=== PATIENT | male | born 1955 | race Caucasian/White ===

== ENCOUNTER → 2023-11-28 10:00 | Outpatient (REF) | payer BC, MEDICARE, SELFPAY | LOC: HWRAD 10:00 | PROVIDERS: ATTENDING PHYSICIAN Family Medicine | DX: M54.59 Other low back pain (principal) | CPT/HCPCS: 72072; 72110 ==

== ENCOUNTER 2024-01-13 18:38 | Emergency (ER) | payer BC, MEDICARE, SELFPAY ==
[2024-01-13 18:50] VITALS: BP 138/82; BMI 35.6
[2024-01-13 19:10] LABS: % Basophils 0.5 % (0-2); % Eosinophils 1.3 % (0-6); % Immature Granulocytes 0.3 % (0-0.5); % Lymphocytes 17.7 % (20.5-51.1); % Monocytes 5.7 % (1.7-9.3); % Neutrophils 74.5 % (42.2-75.2); Absolute Basophils 0.1 10^3/uL (0-0.2); Absolute Eosinophils 0.1 10^3/uL (0-0.7); Absolute Lymphocytes 1.8 10^3/uL (1.2-3.4); Absolute Monocytes 0.6 10^3/uL (0.1-0.6); Absolute Neutrophils 7.8 10^3/uL (1.4-6.5); Hematocrit 43.5 % (39.0-52.0); Hemoglobin 14.4 g/dL (13.0-18.0); Mean Corp Hgb Conc. 33.1 g/dL (33.0-37.0); Mean Corpuscular Volume 84.6 fL (80.0-94.0); Mean Platelet Volume 9.7 fL (7.4-10.4); Nucleated Red Blood Cells % 0 % (-); Platelet Count 207 10^3/uL (130-400); Red Blood Cell Count 5.14 10^6/uL (4.70-6.10); Red Cell Dist. Width 13.3 % (11.5-14.5); White Blood Cell Count 10.4 10^3/uL (4.8-10.8)
[2024-01-13 19:27] LABS: ALT (SGPT) 37 U/L (0-50); AST (SGOT) 35 U/L (17-59); Albumin 4.4 g/dl (3.5-5.0); Alkaline Phosphatase 69 U/L (38-126); Blood Urea Nitrogen 23 mg/dl (9-20); Calcium 9.9 mg/dl (8.4-10.2); Carbon Dioxide 25 mmol/L (22-30); Chloride 105 mmol/L (98-107); Estimated Creatinine Clearance 56 ml/min; Glucose 152 mg/dl (70-99); Lipase 224 U/L (23-300); Potassium 4.3 mmol/L (3.5-5.1); Sodium 141 mmol/L (135-145); Total Bilirubin 0.5 mg/dl (0.2-1.3); Total Protein 7.9 g/dl (6.3-8.2); eGFR > 60.00
--- NOTE | 2024-01-13 19:57 | ED.GENMED ---
History of Present Illness
General
Chief Complaint: Abdominal Pain
Source: patient
Exam Limitations: none
Time Seen by Provider: 01/13/24 19:44
Nursing documentation reviewed up to this point in time: agreed with
Travel History
Have you had any contact with someone who has COVID-19?: No
Do you have any symptoms of coronavirus? Fever > 100 degrees, chills, cough, shortness of breath, sore throat, loss of taste or smell, muscle aches, or headache?: No
History of Present Illness
History of Present Illness:
69 yo male w h/o IDDM, kidney stones, HTN, presents stating 1 p.m. today started with non bloody liquid diarrhea, has had 3-4 times 2 hours after eating turkey TV dinner for lunch. Developed abdominal bloating and 'not really pain but discomfort.'
Also nausea, no vomiting but feels if he could vomit he would feel better.
No recent antibiotic use, no recent travel, no known sick contacts.
Past History
Past History
ED Past Medical History: HTN, Hypercholesterolemia, IDDM and Other (sciatica)
ED Past Surgical History: Orthopedic and Other (hernia repair)
Social History
Tobacco: Former smoker (quit 20 yrs ago)
Alcohol: None
Drug: None
Personal:
Living: with family
Employment: Retired
Review of Systems
Review of Systems
Allergies reviewed?: Yes
All Other Systems: ROS reviewed and negative except as documented in HPI and ROS
Constitutional: Denies fever
Respiratory: Denies trouble breathing
Cardiac: Denies chest pain
ABD/GI: Reports abdominal pain, nausea and diarrhea; Denies vomiting, bloody stools or black stools
: Reports no symptoms
Musculoskeletal: Reports no symptoms
Skin: Reports no symptoms
Neurological: Reports no symptoms
Phy Exam
Physical Exam
Physical Exam:
GENERAL: No acute distress. A&Ox3.
CONSTITUTIONAL: Afebrile.
EYES:clear, conjunctivae normal
ENMT: moist mucus membranes, Pharynx nl
RESPIRATORY: Regular respirations, nonlabored, lungs clear.
CARDIOVASCULAR: Regular rate and rhythm, no murmurs, no rubs.
GI: Firm, rotund, tender mid abdomen, hypoactive BS
MUSCULOSKELETAL: Moves with ease. Well perfused.
SKIN: Warm, dry, pink
PSYCH: Normal mood and affect. Well kept, interactive and appropriate
NEUROLOGIC: Awake, alert and oriented. No focal neurological deficits
Course
Orders/Labs/Results
Orders:
Orders
01/13/24 18:56
IV Insert/Care/Rem.- Treatment PRN
01/13/24 19:02
Complete Blood Count/With Diff Urgent
Comprehensive Metabolic Panel Urgent
Lipase Urgent
01/13/24 19:55
CT Abd/pelvis W Iv Cont Urgent
Comment:
Reason For Exam: bloating, diarrhea
01/13/24 19:56
0.9% Sodium Chloride 1000 ml [Nss] 1,000 ml IV BOLUS
01/14/24 00:11
STOOL [C difficile Antigen & Toxins] Urgent
YARA Source: Feces/Stool
Specimen Description:
Date Specimen was Collected: 01/14/24
Time Specimen was Collected: 00:09
Stool Culture Urgent
YARA Source: Feces/Stool
Specimen Description:
Date Specimen was Collected: 01/14/24
Time Specimen was Collected: 00:09
Abnormal Lab Results
01/13/24
19:02
Absolute Neuts (auto) 7.8 H 10^3/uL
(1.4-6.5)
Lymphocytes % 17.7 L %
(20.5-51.1)
BUN 23 H mg/dl
(9-20)
Glucose 152 H mg/dl
(70-99)
01/13/24 19:02
01/13/24 19:02
Vital Signs
Initial and Last Documented VS:
Initial Vital Signs
Temp Pulse Resp BP Pulse Ox
98.8 F 101 18 138/82 95
01/13/24 18:50 01/13/24 18:50 01/13/24 18:50 01/13/24 18:50 01/13/24 18:50
Last Documented Vital Signs
Temp Pulse Resp BP Pulse Ox
98.8 F 75 14 126/75 96
01/13/24 18:50 01/14/24 00:04 01/13/24 21:30 01/13/24 23:00 01/13/24 23:15
MDM/Problems Addressed
Differential Diagnosis Includes:
diverticulitis, colitis, hernia
MDM/Problems Addressed:
69 yo male w h/o IDDM, kidney stones, HTN, presents stating 1 p.m. today started with non bloody liquid diarrhea, has had 3-4 times 2 hours after eating turkey TV dinner for lunch. Developed abdominal bloating and 'not really pain but discomfort.'
Also nausea, no vomiting but feels if he could vomit he would feel better. No recent antibiotic use, no recent travel, no known sick contacts.
7:30 p.m.
CBC: normal
CMP: no clinically significant abnormality
Lipase normal
11:[address] abd/pelvis w IV only contrast: IMPRESSION:
There is no acute process in the abdomen or pelvis.
There is a tiny paraumbilical hernia containing only fat and a small right inguinal hernia containing only fat. No bowel obstruction.
Diverticulosis. No CT evidence for diverticulitis.
Bilateral renal cysts. No hydronephrosis.
Nothing to explain pts bloating and abd discomfort. May be gas.
He has appt with his doctor in [address] scan and labs sent with him.
Jusst prior to discharge pt had about 200 ml liquid yellowish BM, stool cultures pending
*Critical Care Note
Total Time (30-74mins, 75-104mins- exclusive of procedures): Not Applicable
ED Attending Note
-
Portions of this chart may have been created with voice recognition software.� Occasional wrong word or��sound alike� substitutions may have occurred due to the inherent limitations of voice recognition software.
Discharge Plan
Departure
Patient Disposition: Home (Routine Discharge)
Date of Disposition: 01/13/24
Time of Disposition: 23:57
Patient with high blood pressure during this ER visit?: No
Condition: Fair
Discharge Problem:
Abdominal pain, Diarrhea, Gastroenteritis
Instructions: Diarrhea in teens and adults, Abdominal Pain
Prescriptions:
No Action
simvastatin 20 MG tablet
20 mg PO HS
losartan 100 MG tablet
100 mg PO DAILY
insulin aspart U-100 [Novolog FlexPen U-100 Insulin] 300 UNITS/3 ML insulin pen
0 unit SC AC
Patient Comments:
sliding scale
metformin 750 MG tablet extended release 24 hr
750 mg PO TID
hydrochlorothiazide 25 MG tablet
25 mg PO DAILY
insulin glargine U-300 conc [Toujeo SoloStar U-300 Insulin] 300 UNIT/ML insulin pen
100 unit SC HS
cyclobenzaprine 10 MG tablet
5 mg PO TID Qty: 10 0RF
diclofenac sodium 75 MG tablet,delayed release (DR/EC)
75 mg PO BID Qty: 10 0RF
cephalexin 500 MG capsule
500 mg PO TID Qty: 20 0RF
Referrals:
Case Jimenez MD [Family Provider] - Keep scheduled appt
Activity Restrictions/Additional Instructions:
As we discussed, your workup here tonight shows nothing worrisome,
You may have a viral GI bug causing your diarrhea.
Take copies of all your reports with your to Dr. Hirsch on .
Interventions
Interventions:
*Risk Screen - Suicide Last Done: 01/13/24 18:50
*General Assessment Last Done: 01/13/24 18:50
*Neglect/Abuse Screening Last Done: 01/13/24 18:50
ED- Fall Risk Assessment Last Done: 01/13/24 18:50
*ED COVID-19 Vaccine History Last Done: 01/13/24 18:50
*Nursing Disposition Last Done: 01/14/24 00:29
LJ-Ultecn-Ypmyfspskb Assessment Last Done: 01/13/24 20:00
Discharge Date and Time
Discharge Date/Time: 01/14/24 00:30
Print Language: [place]
[2024-01-13] MEDS: NSS 1000 IV (20:22)
[2024-01-13 20:29] VITALS: BP 138/81
[2024-01-13 21:00] VITALS: BP 139/78
[2024-01-13 22:50] VITALS: BP 123/83
[2024-01-13 23:00] VITALS: BP 126/75
== END 2024-01-14 00:30 | disposition home or self-care (01) ==
LOC: EMR 18:38
PROVIDERS: Student in an Organized Health Care Education/Training Program; EMERGENCY PHYSICIAN Emergency Medicine; FAMILY PHYSICIAN Family Medicine
DX: R10.9 Unspecified abdominal pain (principal); K52.9 Noninfective gastroenteritis and colitis, unspecified; E11.9 Type 2 diabetes mellitus without complications; I10 Essential (primary) hypertension; E78.00 Pure hypercholesterolemia, unspecified; Z87.442 Personal history of urinary calculi; Z87.891 Personal history of nicotine dependence
CPT/HCPCS: 99284; 96360; 74177; 80053; 83690; 85025; 87045; 87046; 87324; 87427; 87449; Q9967

== ENCOUNTER → 2024-07-03 07:14 | Outpatient (REF) | payer MEDICARE, BC, SELFPAY ==
[2024-07-03 08:46] LABS: Hematocrit 42.5 % (39.0-52.0); Hemoglobin 14.2 g/dL (13.0-18.0); Mean Corp Hgb Conc. 33.4 g/dL (33.0-37.0); Mean Corpuscular Hgb 28.6 pg (27.0-31.0); Mean Corpuscular Volume 85.7 fL (80.0-94.0); Platelet Count 197 10^3/uL (130-400); Red Blood Cell Count 4.96 10^6/uL (4.70-6.10); White Blood Cell Count 6.9 10^3/uL (4.8-10.8)
[2024-07-03 08:57] LABS: Blood Urea Nitrogen 30 mg/dl (9-20); Calcium 9.6 mg/dl (8.4-10.2); Carbon Dioxide 29 mmol/L (22-30); Chloride 101 mmol/L (98-107); Glucose 119 mg/dl (70-99); Potassium 4.9 mmol/L (3.5-5.1); Sodium 142 mmol/L (135-145); eGFR 49.47
== END ==
LOC: SDSPAT 07:14
PROVIDERS: ATTENDING PHYSICIAN Surgery; FAMILY PHYSICIAN Family Medicine
DX: Z01.810 Encounter for preprocedural cardiovascular examination (principal); Z01.812 Encounter for preprocedural laboratory examination; K42.9 Umbilical hernia without obstruction or gangrene
CPT/HCPCS: 80048; 85027; 93005

== ENCOUNTER → 2024-09-02 13:05 | Outpatient (REF) | payer MEDICARE, BC, SELFPAY | LOC: PAVMRI 13:05 | PROVIDERS: ATTENDING PHYSICIAN Pain Medicine Interventional Pain Medicine; FAMILY PHYSICIAN Family Medicine | DX: M54.16 Radiculopathy, lumbar region (principal) | CPT/HCPCS: 72148 ==

== ENCOUNTER 2024-10-09 10:27 | Emergency (ER) | payer MEDICARE, BC, SELFPAY ==
[2024-10-09 10:43] VITALS: BP 130/77
[2024-10-09 11:06] VITALS: BMI 35.5
--- NOTE | 2024-10-09 11:19 | ED.GENMED ---
History of Present Illness
General
Chief Complaint: Musculo-Skeletal Complaint
Source: patient
Exam Limitations: none
Time Seen by Provider: 10/09/24 11:07
Nursing documentation reviewed up to this point in time: agreed with
History of Present Illness
History of Present Illness:
69 yr. old male presents to the ED c/o of right lateral foot/heel pain for one week.. Patient reports when he extends his foot he feels discomfort in his left heel. He denies injury. He has results of mild discomfort with weight bearing.
Denies any swelling /pain to calf. Denies any redness, injury, fever/chills. Pt has pain more at night and during the morning hours thought he does have discomfort with ambulation. He does see a wild life manager Dr. Quiñones and has appointment next
Sunday. Patient reports he is having hernia surgery tomorrow morning .
Past History
Past History
ED Past Medical History: HTN, Hypercholesterolemia, IDDM and Other (sciatica)
ED Past Surgical History: Orthopedic and Other (hernia repair)
Social History
Tobacco: Former smoker (quit 20 yrs ago)
Alcohol: None
Drug: None
Personal:
Living: with family
Employment: Retired
Review of Systems
Review of Systems
Allergies reviewed?: Yes
All Other Systems: ROS reviewed and negative except as documented in HPI and ROS
Constitutional: Reports no symptoms; Denies fever, fatigue or chills
Respiratory: Reports no symptoms; Denies trouble breathing
Musculoskeletal: Reports other (pain to right lateral foot /heel denies calf/tenderness /swelling )
Skin: Reports no symptoms
Neurological: Reports no symptoms
Psychiatric: Reports no symptoms
Phy Exam
General Physical Exam
General Presentation: no apparent distress
General age: appears stated age
General Skin: warm and dry
General Habitus: normal
General Mental: alert
General Hydration: appears well hydrated
Neurological Exam
Neurological Exam: alert and oriented x3
Musculoskeletal Exam
Musculoskeletal Exam: other (Right lower extremity strong pulses no swelling to calf no tenderness to calf normal distal sensation no erythema I cannot elicit any discomfort upon palpation of foot ankle area he is very minimally tender over left
Achilles tendon)
Skin Exam
Skin Exam: normal color and warm/dry
Psychiatric Exam
Psychiatric Exam: normal mood/affect
Course
Orders/Labs/Results
Orders:
Orders
10/09/24 11:22
Foot, Right 3 View [CR Foot - Right Min 3 Views] Urgent
Comment:
Reason For Exam: pain right lateral foot
Heel, Right 2 View [CR Heel/os Calcis - Right 2 Vw] Urgent
Comment:
Reason For Exam: pain
Vital Signs
Initial and Last Documented VS:
Initial Vital Signs
Temp
97.9 F
10/09/24 10:40
Last Documented Vital Signs
Temp Pulse Resp BP Pulse Ox
97.9 F 81 16 123/73 96
10/09/24 10:40 10/09/24 13:00 10/09/24 13:00 10/09/24 13:00 10/09/24 10:43
MDM/Problems Addressed
MDM/Problems Addressed:
No evidence of infection or DVT on exam. Symptoms possibly tendinitis versus plantar fasciitis. No acute findings on x-ray there is a bone spur on heel x-ray. Patient is to follow-up with his wild life manager next week as an scheduled.
*Radiology
Radiology exam reviewed: radiology read reviewed
*Critical Care Note
Total Time (30-74mins, 75-104mins- exclusive of procedures): Not Applicable
ED Attending Note
-
Portions of this chart may have been created with voice recognition software.� Occasional wrong word or��sound alike� substitutions may have occurred due to the inherent limitations of voice recognition software.
Discharge Plan
Departure
Patient Disposition: Home (Routine Discharge)
Date of Disposition: 10/09/24
Time of Disposition: 14:05
Patient with high blood pressure during this ER visit?: No
Condition: Fair
Covid-19: Not Applicable
Discharge Problem:
Foot and ankle pain
Instructions: Muscle and Bone Pain (DC)
Prescriptions:
No Action
simvastatin 20 MG tablet
20 mg PO QPM
losartan 100 MG tablet
100 mg PO DAILY
hydrochlorothiazide 25 MG tablet
25 mg PO DAILY
tamsulosin 0.4 mg Capsule
0.4 mg PO DAILY
ergocalciferol (vitamin D2) [Vitamin D2] 1,250 mcg (50,000 unit) Capsule
1,250 mcg PO SA
Rx Instructions:
EVERY OTHER WEEK
potassium citrate 15 mEq Tablet Extended Release
15 meq PO BID
insulin degludec [Tresiba FlexTouch U-200] 200 unit/mL (3 mL) Insulin Pen
60 unit SC Q12H
mecobalamin (vitamin B12) 1,000 mcg Tablet,Chewable
1,000 mcg PO MOWEFR
Rx Instructions:
Mon, Wed, Fri
metformin 500 mg Tablet Extended Release 24 Hr
1,000 mg PO BID
cyclosporine [Restasis] 0.05 % Dropperette
1 drp OPHTHALMIC (EYE) Q12H
Fiasp FlexTouch U-100 Insulin 100 unit/mL (3 mL) Insulin Pen
0 unit SC AC
Patient Comments:
sliding scale with meals
Mounjaro 5 mg/0.5 mL Pen Injector
5 mg SC TU
Referrals:
Krystle Colon I., [Active] -
Case Jimenez MD [Family Provider] -
Nicolette Quiñones DPM [Specified Professional Personl] -
Activity Restrictions/Additional Instructions:
As discussed it is possible that this is tendinitis or plantar fasciitis.
Keep elevated and rest as much as possible. You may ice for discomfort. Follow-up with podiatry/orthopedics for reevaluation.
return if any worsening of symptoms
Interventions
Interventions:
*Risk Screen - Suicide Last Done: 10/09/24 10:40
*General Assessment Last Done: 10/09/24 10:40
*Neglect/Abuse Screening Last Done: 10/09/24 10:40
ED-Musculoskeletal Assessment Last Done: 10/09/24 11:05
Discharge Date and Time
Print Language: SLOVENIAN
[2024-10-09 13:00] VITALS: BP 123/73
== END 2024-10-09 14:10 | disposition home or self-care (01) ==
LOC: EMR 10:27
PROVIDERS: EMERGENCY PHYSICIAN Emergency Medicine; FAMILY PHYSICIAN Family Medicine
DX: M79.671 Pain in right foot (principal); Z87.891 Personal history of nicotine dependence
CPT/HCPCS: 99283; 73630; 73650

== ENCOUNTER 2024-10-10 06:02 | Day surgery (SDC) | payer MEDICARE, BC, SELFPAY ==
[2024-10-10] VITALS (9 sets, daily range): BP systolic 119–150; BP diastolic 67–93; BMI 33.3
[2024-10-10] MEDS: TYLENOL 1000 MG PO (06:31)
--- NOTE | 2024-10-10 06:31 | HP.FOC2 ---
Focused History & Physical
Chief Complaint
HPI:
Chief Complaint: Ventral hernia
HPI / Indication for Planned Procedure: Patient is a 69-year-old male recently seen in outpatient surgical valuation secondary to a history of swelling just above the region of his umbilicus. He has an awareness of the hernia being present. A
couple instances where it has been more painful and swollen. Typically the hernia soft and reducible but readily reoccurs. Only past abdominal surgical history is inguinal herniorrhaphy as a child.
CT imaging 12/2023: Supraumbilical ventral hernia measuring 1.5 cm and smaller umbilical hernia defect about 1 cm
Relevant Past Medical History: Other (Hyperlipidemia, type 2 diabetes, hypertension, BPH, kidney stone, obesity with BMI of 33)
Relevant Social History: Negative
Relevant Family History: Negative
Relevant Past Surgical History: Positive for (Left inguinal hernia repair as a child, right shoulder rotator cuff, L5-S1 epidural steroid injection, cataracts)
Review of Systems
Review of Pertinent Systems: All Systems Negative
Medication
See Medication form for detailed medications: Yes
Medication List (including Herbals & OTC):
losartan 100 mg tablet 100 mg PO DAILY 03/14/14
simvastatin 20 mg tablet 20 mg PO QPM 03/14/14
hydrochlorothiazide 25 mg tablet 25 mg PO DAILY 08/11/16
ergocalciferol (vitamin D2) 1,250 mcg (50,000 unit) capsule (Vitamin D2) 1,250 mcg PO SA 07/04/24
insulin degludec 200 unit/mL (3 mL) subcutaneous pen (Tresiba FlexTouch U-200 insulin) 60 unit SC Q12H 07/04/24
mecobalamin (vitamin B12) 1,000 mcg chewable tablet 1,000 mcg PO MOWEFR 07/04/24
potassium citrate 15 mEq (1,620 mg) tablet,extended release 15 meq PO BID 07/04/24
tamsulosin 0.4 mg capsule 0.4 mg PO DAILY 07/04/24
cyclosporine 0.05 % eye drops in a dropperette (Restasis) 1 drp ophthalmic (eye) Q12H 10/03/24
insulin aspart (niacinamide)(U-100) 100 unit/mL(3 mL) subcutaneous pen (Fiasp FlexTouch U-100 Insulin) 0 unit SC AC 10/03/24
metformin 500 mg tablet,extended release 24 hr 1,000 mg PO BID 10/03/24
tirzepatide 5 mg/0.5 mL subcutaneous pen injector (Mounjaro) 5 mg SC TU 10/03/24
Medications Reviewed: Yes
Allergies and Reactions
Patient has Allergies: Yes
Noted Allergies and Reactions:
Allergy/AdvReac Type Severity Reaction Status Date / Time
lisinopril AdvReac Mild cough Verified 10/10/24 06:16
Pertinent Physical Exam
All Other Systems: Negative
Head/Neck: Normal
Lungs: Normal
Heart: Normal
Abdomen: Other (Ventral hernia few centimeters above the umbilical stalk, soft, reducible. Diastasis recti)
Extremities: Normal
Neurological: Normal
Diagnosis / Assessment
69-year-old male presenting for scheduled operative correction ventral hernia
Plan / Procedure
Robotic assisted laparoscopic repair ventral hernia with mesh
Anesthesia/Sedation to be done by Anesthesia Provider: Yes
--- NOTE | 2024-10-10 06:34 | W.SUR.PREOP ---
Pre-Operative Surgical Note
-
I have examined this patient prior to the performance of the scheduled procedure.
The patient's condition is unchanged from the time of the current History and
Physical and the patient is able to undergo the scheduled procedure.
[2024-10-10] MEDS: NORMOSOL-R/PLASMALYTE-A 1000 IV (06:39)
[2024-10-10 06:41] LABS: Glucose - Point of Care 118 mg/dl (70-99)
[2024-10-10 08:54] LABS: Glucose - Point of Care 116 mg/dl (70-99)
--- NOTE | 2024-10-10 08:56 | W.IMMPOSTOP ---
Addendum entered and electronically signed by Tony Mays MD 10/10/24 09:05:
#[id number]
Original Note:
Surgical Immed Post Op Note
-
Primary Surgeon: Tony Mays MD
Assisting Surgeon: Mario SZYMANSKI
Pre-op Diagnosis: Ventral hernia/umbilical hernia
Post-op Diagnosis: Ventral hernia/umbilical hernia, 3 cm
Procedure Performed: Robotic assisted laparoscopic VICKY repair ventral/umbilical hernia with mesh; Ventralight ST 10 x 15 cm
Anesthesia Type: GETA +0.25% Marcaine with epinephrine
Specimen / Cultures: None
Estimated Blood Loss: 6 mL
Complications: None immediate
Operative Findings: Primary ventral hernia approximately 2 to 2.5 cm fascial defect. Umbilical hernia inferior to ventral hernia measuring approximately 1 cm or slightly smaller. Total hernias together spanning vertical length of 3 cm. Underlay
preperitoneal mesh repair with Ventralight ST 10 cm x 15 cm.
[2024-10-10] MEDS: DILAUDID 0.25 MG IV (09:18)
== END 2024-10-10 10:18 | disposition home or self-care (01) ==
LOC: SDS 06:02
PROVIDERS: ATTENDING PHYSICIAN Surgery
DX: K43.9 Ventral hernia without obstruction or gangrene (principal); K42.9 Umbilical hernia without obstruction or gangrene
CPT/HCPCS: 49593; 82962; C1713

== ENCOUNTER → 2025-01-28 07:32 | Outpatient (REF) | payer MEDICARE, BC, SELFPAY | LOC: HWRAD 07:32 | PROVIDERS: ATTENDING PHYSICIAN Specialist; FAMILY PHYSICIAN Family Medicine | DX: N20.0 Calculus of kidney (principal) | CPT/HCPCS: 74176 ==